=== PATIENT | female | born 1995 | race Caucasian/White ===

== ENCOUNTER 2020-02-22 19:49 | Emergency (ER) | payer OTHER, MEDICAID ==
[~2020-02-22] VITALS: Ht 152.4 cm; Wt 81.7 kg
[2020-02-23 00:08] VITALS: BP 132/64
[2020-02-26] MEDS ORDERED: HYDROCODON-ACE1 EAC7 PO (16:23)
[2020-02-26] MEDS ORDERED: IBUPROFEN200 M1 PO (16:24)
[2020-02-27] MEDS ORDERED: NORCO 5-325 TA1 EAC2 PO (09:50)
== END 2020-02-23 00:09 | disposition home or self-care (01) ==
LOC: M.ERS 19:49
DX: S52.592A Other fractures of lower end of left radius, initial encounter for closed fracture (principal); V89.2XXA Person injured in unspecified motor-vehicle accident, traffic, initial encounter; Y93.89 Activity, other specified; Y92.89 Other specified places as the place of occurrence of the external cause; Y99.8 Other external cause status

== ENCOUNTER → 2020-02-27 | Day surgery (SDC) | payer OTHER, MEDICAID ==
[~2020-02-27] MED LIST: HYDROCODON-ACE1 EAC7 PO; IBUPROFEN200 M1 PO; NORCO 5-325 TA1 EAC2 PO
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
[2020-02-27 06:40] LABS: HEMATOCRIT 35.1 % (37.0-47.0); HEMOGLOBIN 12.1 gm/dL (12.0-15.0)
== END | disposition home or self-care (01) ==
LOC: M.SUR 06:22
PROVIDERS: Anesthesiology; ATTEND Orthopaedic Surgery
DX: S52.572A Other intraarticular fracture of lower end of left radius, initial encounter for closed fracture (principal); X58.XXXA Exposure to other specified factors, initial encounter; Y93.89 Activity, other specified; Y92.89 Other specified places as the place of occurrence of the external cause; Y99.8 Other external cause status